=== PATIENT | male | born 1960 | race Caucasian/White ===

== ENCOUNTER 2017-03-05 13:37 | Emergency (ER) | payer OTHER ==
[~2017-03-05] VITALS: Ht 190.5 cm; Wt 105.0 kg
[2017-03-05 13:38] VITALS: BP 201/101; PULSE 85; RESP 22; TEMP 98.3; O2SAT 100
[2017-03-05 14:08] VITALS: BP 171/96; PULSE 61; RESP 20; O2SAT 99
[2017-03-05 14:31] LABS: BLOOD, URINE MOD (NEG); GLUCOSE,URINE NEG (NEG); KETONE, URINE NEG (NEG); MUCUS URINE FEW /lpf (OCC); NITRITE,URINE NEG (NEG); URINE COLOR YELLOW (YELLW/STRAW)
[2017-03-05] MEDS ORDERED: TAMS5CAP PO (14:39)
--- NOTE | 2017-03-05 14:39 | PD ---
HPI Chief Complaint: Complaint Time Seen by Provider: 13:45 Travel History International Travel<30 days: No Contact w/Intl Traveler<30days: No Traveled to known affect area: No History of Present Illness HPI 56-year-old male arrives with urinary retention. He's been unable to void since he woke up this morning. He arrives to the ER at about 2 PM. He reports a history of BPH. He has been taking dutasteride evidently without much benefit. He's had no nausea vomiting or fever. He said no back pain. He reports some diarrhea throughout the course of the morning. He difficulty sleeping last night due to urinary hesitancy. He follows with Dr. Kyle of urology. [facility] Past Medical History Genitourinary: Yes (large prostate) Social History Alcohol Use: No Tobacco Use: No Substance Use: No Allergies-Medications (Allergen,Severity, Reaction): Coded Allergies: Iodine (Verified Allergy, Unknown, Itching, 03/05/17) Reported Meds & Prescriptions Reported Meds & Active Scripts Active Flomax (Tamsulosin HCl) 0.4 Mg Cap 0.4 Mg PO HS Review of Systems Except as stated in HPI: all other systems reviewed are Neg Physical Exam Narrative GENERAL: 56-year-old male pleasant well-nourished well-developed, pacing about the room in moderate distress SKIN: Focused skin assessment warm/dry. HEAD: Atraumatic. Normocephalic. EYES: Pupils equal and round. No scleral icterus. No injection or drainage. ENT: No nasal bleeding or discharge. Mucous membranes pink and moist. NECK: Trachea midline. No JVD. CARDIOVASCULAR: Regular rate and rhythm. No murmur appreciated. RESPIRATORY: No accessory muscle use. Clear to auscultation. Breath sounds equal bilaterally. GASTROINTESTINAL: Prominent supra pubic abdomen consistent with urinary retention. No flank tenderness. MUSCULOSKELETAL: No obvious deformities. No clubbing. No cyanosis. No edema. NEUROLOGICAL: Awake and alert. No obvious cranial nerve deficits. Motor grossly within normal limits. Normal speech. PSYCHIATRIC: Appropriate mood and affect; insight and judgment normal. Data Data Last Documented VS Vital Signs Date Time Temp Pulse Resp B/P Pulse Ox O2 Delivery O2 Flow Rate FiO2 03/05/17 15:00 62 16 154/90 96 03/05/17 14:08 Room Air 03/05/17 13:38 98.3 Vital signs reviewed Orders Ua Includes Microscopic (03/05/17 13:51) Urinary Catheter Insert/Apply (03/05/17 13:51) Labs Laboratory Tests Test 03/05/17 14:15 Urine Color YELLOW Urine Turbidity CLEAR Urine pH 7.0 Urine Specific Ada 1.010 Urine Protein NEG mg/dL Urine Glucose (UA) NEG mg/dL Urine Ketones NEG mg/dL Urine Occult Blood MOD Urine Nitrite NEG Urine Bilirubin NEG Urine Urobilinogen LESS THAN 2.0 MG/DL Urine Leukocyte Esterase NEG Urine RBC 104 /hpf Urine WBC 1 /hpf Urine Mucus FEW /lpf MDM Medical Decision Making Medical Screen Exam Complete: Yes Emergency Medical Condition: Yes Medical Record Reviewed: Yes Differential Diagnosis BPH, UTI, constipation, diarrhea Narrative Course [address] [place] urinary Hale catheter was placed. Approximately 1100 cc of clear yellow urine collected. The patient will follow-up with urology, Dr Kyle. Hale to leg bag. Flomax prescription. UA: RBCs, no UTI Diagnosis Primary Impression: Urinary retention due to benign prostatic hyperplasia Referrals: Catracho Kyle MD 2 days Additional Instructions: You have a choice when it comes to health care, and we are glad that you chose [facility]. Hopefully, we have met your expectations on today's visit. You are welcome to return to [facility] at any time, as we are committed to meeting the health care needs of our community. Med/Other Pt SpecificInfo: Prescription(s) given Scripts Tamsulosin (Flomax)0.4 Mg Cap0.4 Mg PO HS #30 CAP Ref 0 Prov:Pipe Humphreys MD 03/05/17 Disposition: 01 DISCHARGE HOME Condition: Stable Pipe Humphreys MD March 05, 2017 14:39
[2017-03-05 15:00] VITALS: BP 154/90
== END 2017-03-05 15:38 | disposition home or self-care (01) ==
LOC: NEPC 13:37
DX: R33.8 Other retention of urine (principal); N40.1 Benign prostatic hyperplasia with lower urinary tract symptoms
CPT/HCPCS: 51702; 81001

== ENCOUNTER 2017-03-06 21:10 | Emergency (ER) | payer OTHER ==
[~2017-03-06] VITALS: Ht 182.9 cm; Wt 105.0 kg
[~2017-03-06 21:10] MED LIST: TAMS5CAP PO
[2017-03-06 21:12] VITALS: BP 179/116; PULSE 90; RESP 16; TEMP 98.9; O2SAT 98
--- NOTE | 2017-03-06 21:24 | PD ---
HPI Chief Complaint: Production Consultant Problem Time Seen by Provider: 21:18 Travel History International Travel<30 days: No Contact w/Intl Traveler<30days: No Traveled to known affect area: No History of Present Illness HPI 56-year-old male here with complaint of urinary catheter problem. Patient has a history of BPH. He was seen here in our emergency department yesterday with complaint of obstructive uropathy and inability to urinate. He had a Hale catheter placed at that time. Patient states that he has had a scant amount of blood from the catheter that increased this morning after he accidentally tugged on it. Patient states that for now the last 3.5 hours he has had little to no drainage from the catheter and notes a slight amount of pain. He says the pain is primarily irritation of the tip of the distal urethral meatus and not within the abdomen. Nothing like he had yesterday. PFSH Past Medical History Genitourinary: Yes (large prostate) Past Surgical History Surgical History: No Previous Surgery Social History Alcohol Use: No Tobacco Use: No Substance Use: No Allergies-Medications (Allergen,Severity, Reaction): Coded Allergies: Iodine (Verified Allergy, Unknown, Itching, 03/06/17) Reported Meds & Prescriptions Reported Meds & Active Scripts Active Flomax (Tamsulosin HCl) 0.4 Mg Cap 0.4 Mg PO HS Review of Systems Except as stated in HPI: all other systems reviewed are Neg Physical Exam Narrative GENERAL: Well-appearing middle-aged male in no acute distress SKIN: Focused skin assessment warm/dry. HEAD: Normocephalic. EYES: No scleral icterus. No injection or drainage. ENT: Mucous membranes pink and moist. CARDIOVASCULAR: Regular rate and rhythm. RESPIRATORY: No accessory muscle use. GASTROINTESTINAL: Abdomen soft, non-tender, nondistended. GENTIOURINARY: Indwelling Hale catheter in place with scant amount of bloody urine within the back. Normal external male genitalia MUSCULOSKELETAL: Normal gait NEUROLOGICAL: Awake and alert. Normal speech. PSYCHIATRIC: Appropriate mood and affect; insight and judgment normal. Data Data Last Documented VS Vital Signs Date Time Temp Pulse Resp B/P Pulse Ox O2 Delivery O2 Flow Rate FiO2 03/06/17 21:12 98.9 90 16 179/116 98 Room Air MDM Medical Decision Making Medical Screen Exam Complete: Yes Emergency Medical Condition: Yes Medical Record Reviewed: Yes Differential Diagnosis 56-year-old male with history of BPH here yesterday with urinary retention status post Hale placement now without any urine from his catheter for the last 3.5 hours after having some blood. Differential includes hematuria with clot obstruction of the Hale catheter, catheter displacement, oliguria. Narrative Course Patient's Hale catheter was flushed with a small blood clot that was removed. Patient tolerated procedure well and was able to get urine flowing freely thereafter. Will be discharged home. Diagnosis Primary Impression: Obstruction of urinary catheter Qualified Code: T83.098A - Obstruction of urinary catheter, initial encounter Referrals: Catracho Kyle MD call for appointment Additional Instructions: Call for follow-up appointment with urologist as discussed. Med/Other Pt SpecificInfo: No Change to Meds Disposition: 01 DISCHARGE HOME Condition: Stable Ariadna Serrano MD March 06, 2017 21:24
== END 2017-03-06 22:29 | disposition home or self-care (01) ==
LOC: NEPE 21:10
DX: T83.118A Breakdown (mechanical) of other urinary devices and implants, initial encounter (principal); N13.9 Obstructive and reflux uropathy, unspecified
CPT/HCPCS: 99283

== ENCOUNTER 2017-03-10 12:50 | Inpatient (IN) | payer OTHER ==
[~2017-03-10] VITALS: Ht 189.2 cm; Wt 98.0 kg
[2017-03-23] MEDS ORDERED: AVOD0.5C PO (15:33)
[2017-03-23] MEDS ORDERED: METF500T PO (15:33)
[2017-03-23] MEDS ORDERED: LISI40TA PO (15:33)
[2017-03-23] MEDS ORDERED: MIRA3350 PO (15:33)
[2017-03-23] MEDS ORDERED: CHOL1CAP34 PO (15:33)
[2017-03-24] MEDS ORDERED: NEOSTIGMINE 3 MG/3 ML SYR IV ONE (12:00)
[2017-03-24] MEDS ORDERED: PROPOFOL 200 MG/20 ML AMP IV ONE (12:00)
[2017-03-24] MEDS ORDERED: ePHEDrine/NS 25 MG/5 ML SYR IV ONE (12:00)
[2017-03-24] MEDS ORDERED: ONDANSETRON HCL 4 MG/2 ML VIAL IV PUSH ONE (12:00)
[2017-03-24] MEDS ORDERED: PHENYLEPH/NS 1000 MCG/10 ML SYR IV ONE (12:00)
[2017-03-24] MEDS ORDERED: INSULIN HUMAN REGULAR 1,000 UNITS/10 ML VIAL SQ PRN (12:15)
[2017-03-24] MEDS ORDERED: SODIUM CHLORID 0.9% 500 ML IV PRN (12:15)
[2017-03-24] MEDS ORDERED: LACTATED RINGER'S 1000 ML IV PRN (12:15)
[2017-03-24] MEDS ORDERED: CHLORHEXIDINE GLUCONATE 2 % 1 PACK (2 CLOTHS) TOPICAL PRN (12:15)
[2017-03-24] MEDS ORDERED: METOPROLOL TARTRATE 25 MG TAB PO PRN (12:15)
[2017-03-24] MEDS ORDERED: ceFAZolin 2 GM PREMIX 50 ML IV SCH (12:30)
[2017-03-24] MEDS ORDERED: GENTAMICIN IV SCH (12:30)
[2017-03-24] MEDS ORDERED: SODIUM CHLORIDE 0.9% IV SCH (12:30)
[2017-03-24 12:36] VITALS: BP 155/104; PULSE 76; RESP 18; TEMP 98.4; O2SAT 99
[2017-03-24] MEDS ORDERED: MIDAZOLAM HCL 2 MG/2 ML VIAL ONE (13:18)
[2017-03-24] MEDS ORDERED: FAMOTIDINE 20 MG/2 ML VIAL ONE (13:19)
[2017-03-24] MEDS ORDERED: diphenhydrAMINE HCL 50 MG/ML VIAL ONE (13:19)
[2017-03-24] MEDS ORDERED: DEXAMETHASONE SOD PHOS 4 MG/ML VIAL ONE (13:25)
[2017-03-24] MEDS ORDERED: diphenhydrAMINE HCL 50 MG/ML VIAL IV ONE (13:30)
[2017-03-24] MEDS ORDERED: LORazepam 2 MG/ML VIAL ONE (16:03)
[2017-03-24] MEDS ORDERED: HALOPERIDOL LACTATE 5 MG/ML AMP ONE (16:12)
[2017-03-24] MEDS ORDERED: DO NOT ADM ANY ANTICOAGULANT DRUGS PRN (16:15)
[2017-03-24] MEDS ORDERED: BELLADONNA ALKALOIDS/OPIUM 60 MG SUPP RECTAL ONE (16:38)
[2017-03-24] MEDS ORDERED: fentaNYL CITRATE 250 MCG/5 ML AMP ONE (16:38)
[2017-03-24] MEDS ORDERED: *morphine SULFATE 8 MG/ML PERIprocedure ONLY ONE (16:53)
[2017-03-24] MEDS ORDERED: MORPHINE SULFATE 30 MG/30 ML PCA ONE (16:58)
[2017-03-24] MEDS ORDERED: ACETAMINOPHEN 325 MG TAB PO PRN (17:00)
[2017-03-24] MEDS ORDERED: NALOXONE HCL 0.4 MG/ML AMP IV PRN (17:15)
[2017-03-24] MEDS ORDERED: MORPHINE SULFATE 30 MG/30 ML PCA IV SCH (17:15)
[2017-03-24] MEDS ORDERED: HALOPERIDOL LACTATE 5 MG/ML AMP IV ONE (17:30)
[2017-03-24] MEDS: DEXT 5%-NACL 0.45% 1000 ML INJ 1,000 ML IV SCH (17:30)
[2017-03-24] MEDS ORDERED: LORazepam 2 MG/ML VIAL IV PRN (17:30)
[2017-03-24 18:00] VITALS: PULSE 112; RESP 16
[2017-03-24 19:46] VITALS: O2SAT 100
[2017-03-24 20:00] VITALS: BP 164/91; PULSE 90; PULSE 92; RESP 16; TEMP 98.6; O2SAT 100
[2017-03-24] MEDS: BELLADONNA ALKALOIDS/OPIUM 60 MG SUPP RECTAL PRN (20:55)
[2017-03-24 22:00] VITALS: PULSE 88; RESP 16
[2017-03-24] MEDS: PCA - TOTAL MG MORPHINE DELIVERED PER SHIFT SCH (23:37)
[2017-03-24] MEDS: LISINOPRIL 20 MG TAB PO SCH (23:37)
[2017-03-25] VITALS (14 sets, daily range): BP systolic 100–148; BP diastolic 60–95; PULSE 86–105; RESP 16–20; TEMP 98.3–100; O2SAT 95–100
[2017-03-25] MEDS: DEXT 5%-NACL 0.45% 1000 ML INJ 1,000 ML IV SCH (01:58)
[2017-03-25] MEDS: PCA - TOTAL MG MORPHINE DELIVERED PER SHIFT SCH ×2 (05:24→14:00)
[2017-03-25] MEDS: BELLADONNA ALKALOIDS/OPIUM 60 MG SUPP RECTAL PRN ×2 (05:25→22:20)
[2017-03-25] MEDS: metFORMIN HCL 500 MG TAB PO SCH (09:00)
[2017-03-25] MEDS: LISINOPRIL 20 MG TAB PO SCH (09:15)
--- NOTE | 2017-03-25 12:12 | EKG ---
Date Performed: 03/24/2017 Time Performed: 12:28:34 PTAGE: 56 years EKG: Sinus rhythm MODERATE INTRAVENTRICULAR CONDUCTION DELAY BORDERLINE ECG NO PREVIOUS TRACING DOCTOR: Kenroy Joseph Interpretating Date/Time 03/25/2017 12:08:45
--- NOTE | 2017-03-25 19:51 | HHI.PR ---
Subjective Patient symptoms today feels better, apprehensive,no nausea, Objective Vital Signs Vital Signs Date Time Temp Pulse Resp B/P Pulse Ox O2 Delivery O2 Flow Rate FiO2 03/25/17 18:00 92 03/25/17 16:00 89 03/25/17 16:00 98.9 92 18 148/80 99 03/25/17 14:00 18 03/25/17 14:00 88 03/25/17 14:00 18 03/25/17 12:00 88 03/25/17 12:00 99.0 88 20 144/93 100 03/25/17 10:00 89 03/25/17 08:07 100 Nasal Cannula 2.00 03/25/17 08:00 100.0 86 20 141/71 100 03/25/17 08:00 86 03/25/17 07:00 100 Room Air 03/25/17 06:00 16 03/25/17 06:00 89 03/25/17 05:24 18 03/25/17 04:00 99.6 89 17 146/75 100 03/25/17 04:00 89 03/25/17 02:00 91 03/25/17 00:00 98.3 91 16 139/95 100 03/25/17 00:00 91 03/24/17 23:37 16 03/24/17 22:00 88 03/24/17 22:00 16 03/24/17 20:00 90 03/24/17 20:00 98.6 92 16 164/91 100 03/24/17 19:46 100 Nasal Cannula 3.00 Intake & Output 03/25/17 03/25/17 06:59 18:59 Intake Total 1383 ml 1042 ml Output Total 2350 ml 1325 ml Balance -967 ml -283 ml Intake Oral 180 ml 300 ml IV Total 1203 ml 742 ml Output Urine Total 2350 ml 1325 ml # Bowel Movements 0 0 Objective Remarks abdomen soft, wound dry urine actually rather clear (did require irrigation last night) having bladder spasms (controlled with B& O supp) tolerating ADA diet urine output good Medications and IVs Current Medications Medications (Trade) Dose Ordered Sig/Lolly Route Start Time Stop Time Status Last Admin Lactated Ringer's 1,000 ml @ 30 mls/hr Q24H PRN IV 03/24/17 12:15 03/27/17 12:14 03/24/17 12:30 (NS 500 ml Inj) 500 ml @ 30 mls/hr [id number] PRN IV 03/24/17 12:15 03/27/17 12:14 (B & O Supp) 60 mg Q6H PRN RECTAL 03/24/17 17:00 03/25/17 05:25 (Tylenol) 650 mg Q4H PRN PO 03/24/17 17:00 (Morphine 1 Mg/ ml ASSISTANT CENTER MANAGER) 30 mg UNSCH IV 03/24/17 17:15 03/24/17 17:29 ASSISTANT CENTER MANAGER Dosage Infused (Pha) 1 Q8HR .XX 03/24/17 22:00 03/25/17 14:00 (Narcan Inj) 0.4 mg UNSCH PRN IV 03/24/17 17:15 (Prinivil) 40 mg DAILY PO 03/24/17 22:00 03/25/17 09:15 (Glucophage) 500 mg DAILY PO 03/25/17 09:00 Assessment and Plan Assessment and Plan POD #1 stable, retropubic prostatectomy for clinically B-9 disease Plan: for probable D/c in a.m. see written orders for details Dr Conroy will see in early a.m. pt has post op meds at home our office will arrange for further f/u next week Catracho Kyle MD Mar 25, 2017 19:51
[2017-03-25] MEDS ORDERED: NALOXONE HCL 0.4 MG/ML AMP IV PRN (21:00)
[2017-03-25] MEDS: oxyCODONE/ACETAMINOPHEN 5 MG/325 MG TAB PO SCH (21:00)
[2017-03-25] MEDS: POLYETHYLENE GLYCOL 17 GM PKG PO SCH (21:00)
[2017-03-26] VITALS (7 sets, daily range): BP systolic 100–117; BP diastolic 59–71; PULSE 71–104; RESP 16–20; TEMP 98–98.7; O2SAT 96–99
[2017-03-26] MEDS: oxyCODONE/ACETAMINOPHEN 5 MG/325 MG TAB PO SCH ×4 (02:00→13:00)
[2017-03-26] MEDS: metFORMIN HCL 500 MG TAB PO SCH (09:00)
[2017-03-26] MEDS: LISINOPRIL 20 MG TAB PO SCH (09:00)
[2017-03-26] MEDS: POLYETHYLENE GLYCOL 17 GM PKG PO SCH (09:33)
--- NOTE | 2017-03-26 11:59 | HHI.FF ---
Face to Face Verification Diagnosis: (1) Urinary retention due to benign prostatic hyperplasia Home Health Nursing Order: Hale catheter maintenance Home Health Aide Order: To Assist In: Bathing and personal care I have seen patient Benjamin Long on 03/26/17. My clinical findings support the need for the requested home health care services because: Limited ability to care for self I certify that my clinical findings support that this patient is homebound because: Post-op weakness Roverto Conroy MD Mar 26, 2017 11:59
--- NOTE | 2017-03-26 12:03 | HHI.DS ---
Discharge Summary Admission Date Mar 24, 2017 at 11:48 Discharge Date: Mar 26, 2017 Admitting Diagnosis BPH with LUTS Urinary Retention Procedures Simple Retropubic Prostatectomy Hospital Course 56 yo male was admitted following a Retropubic Prostatectomy. His hospital course was uncomplicated. His urine cleared up on POD # 1 and his pain was well controlled. He was tolerating a regular diet and passing flatus. He was discharged home with chi catheter on POD # 2. Pt Condition on Discharge: Fair Discharge Disposition: Disch w/ Home Health Serv Discharge Instructions DIET: Follow Instructions for: Heart Healthy Diet Activities you can perform: Full Weight Bearing, Shower Only-No Bath Activities to avoid: Strenuous Activity Additional Activity Instructio: No heavy lifting greater than 15 lbs x 4 weeks. Continued Medications: Cholecalciferol (Vitamin D3) 50,000 Unit Cap 17055 UNITS PO Q7D Nutritional Supplement #1 Ref 0 BOTTLE Dutasteride (Avodart) 0.5 Mg Cap 0.5 MG PO DAILY Manage Prostate Problems #30 Ref 0 CAP Lisinopril (Lisinopril) 40 Mg Tab 40 MG PO DAILY Blood Pressure Management #30 Ref 0 TAB Metformin (Metformin) 500 Mg Tab 500 MG PO DAILY With a meal Blood Sugar Management #30 Ref 0 TAB Polyethylene Glycol 3350 Powder (Miralax Powder) 17 Gm Powd 17 GM PO DAILY Mix and dissolve one measuring cap-ful (17 grams) in water or juice. Constipation #1 Ref 0 CAN Tamsulosin (Flomax) 0.4 Mg Cap 0.4 MG PO HS Manage Prostate Problems #30 Ref 0 CAP Roverto Conroy MD Mar 26, 2017 12:03
[2017-03-26] MEDS ORDERED: COMMODE 3-IN-11 MIS (13:29)
--- NOTE | 2017-03-26 16:42 | MP ---
cc: IRINA MRA MD DATE OF SURGERY 03/24/17 PREOPERATIVE DIAGNOSIS Urinary retention secondary to prostatic hypertrophy. POSTOPERATIVE DIAGNOSIS Urinary retention secondary to prostatic hypertrophy. PROCEDURE Retropubic prostatectomy for clinically benign disease. SURGEON Orville Mar MD PM HEAD COOK Christi Conroy MD ANESTHESIA General PROCEDURE IN DETAIL This 56-year-old gentleman has known for quite some time that he has had significant prostatic hypertrophy. He has had increasing difficulties voiding. He finally went into urinary retention a few weeks ago. Options were discussed, but because his prostate which had been measured even a few years ago at 101 grams he was not felt to be a suitable candidate for much of anything other than a retropubic prostatectomy or perhaps a Holep intervention, but that is not available in our community. So he received appropriate preoperative antibiotics in the holding area, was taken to the operating room, given a general anesthetic and then prepped and draped in a sterile fashion and a time-out was taken for identification purposes. A midline incision was made from the symphysis pubis to the umbilicus and carried on down to the space of Retzius which was then developed and packed off bilaterally. Several sutures were placed in a transverse fashion across the anterior wall of the prostatic capsule and then a transverse capsulotomy was made. With blunt and sharp dissection, the adenoma was enucleated from the prostatic fossa and submitted for pathologic analysis. We trimmed to the posterior wall of the bladder neck, splint it in the middle and then pexed the wings to the posterior lamella of the prostatic fossa. Then the transverse capsulotomy was closed with 0 Vicryl ligature. A Hale catheter 22-Lao was then inserted with a 30 mL balloon and inflated to 40 mL, then placed on gentle gauze traction and irrigated until clear. Upon irrigation of this area, we did not have any bladder leaks or any capsulotomy leaks so I did not feel that a drain was necessary. We placed the apparatus on gentle gauze traction, closed the external fascia with these looped PDS and then the skin with skin clips. He tolerated the procedure well, had an estimated blood loss of about 400 mL and was returned to the recovery room in stable condition. MD ANSELMO Hahn/ /4:38 PM /4:34 PM
== END 2017-03-26 14:32 | disposition home health service (06) | DRG 708 ==
LOC: HSDI 03-24 11:48 → N03B 03-24 17:52
PROC: 0T9B70Z Drainage of Bladder with Drainage Device, Via Natural or Artificial Opening (ICD-10-PCS; 2017-03-24)
PROC: 0VT00ZZ Resection of Prostate, Open Approach (ICD-10-PCS; principal; 2017-03-24 13:50)
DX: N40.1 Benign prostatic hyperplasia with lower urinary tract symptoms (principal); N32.89 Other specified disorders of bladder; R33.8 Other retention of urine
CPT/HCPCS: 86850; 86900; 86901; 87641; 88307; 93005; 94150; J0690; J1100; J1200; J1580; J1630; J2060; J2250; J2270; J2370; J2405; J2710; J3010; J7120